=== PATIENT | male | born 1975 | race African-American/Black ===

== ENCOUNTER 2021-02-25 13:41 | Outpatient (CLI) | payer OTHER | END 2021-02-25 13:42 | disposition home or self-care (01) | LOC: ULT 13:41 | PROVIDERS: ATTEND Family Medicine | DX: S80.11XD Contusion of right lower leg, subsequent encounter (principal); S80.12XA Contusion of left lower leg, initial encounter; M79.89 Other specified soft tissue disorders; M79.604 Pain in right leg | CPT/HCPCS: 93923 ==